=== PATIENT | female | born 1990 | race Caucasian/White ===

== ENCOUNTER 2021-04-24 13:13 | Emergency (ER) | payer OTHER, BC ==
[~2021-04-24] VITALS: Ht 152.4 cm; Wt 63.5 kg
[2021-04-24 13:28] VITALS: BP_SYST 155
[2021-04-24] MEDS ORDERED: IBUPROFEN 600 MG TABLET PO ONE (13:30)
[2021-04-24] MEDS ORDERED: TRAM50TA PO (14:03)
[2021-04-24] MEDS ORDERED: NAPR-688 PO (14:03)
[2021-04-24 14:28] VITALS: BP_SYST 155
== END 2021-04-24 14:28 | disposition home or self-care (01) ==
LOC: SED 13:13
DX: S29.012A Strain of muscle and tendon of back wall of thorax, initial encounter (principal); V49.49XA Driver injured in collision with other motor vehicles in traffic accident, initial encounter; Y93.89 Activity, other specified; Y92.89 Other specified places as the place of occurrence of the external cause; Y99.8 Other external cause status
CPT/HCPCS: 72072-TC; 81025; 99283